=== PATIENT | female | born 1980 | race Caucasian/White ===

== ENCOUNTER 2017-11-22 15:06 | Emergency (ER) | payer BC ==
[~2017-11-22 15:06] MED LIST: CEPH-460 PO; CIPR-9 PO; HYDR-3533 PO; NORC5TAB PO; PRENTAB72; TAMS5CAP PO; TRUSPAK; ZOFR4TAB PO; ZOFR4TAB3 SL
--- NOTE | 2017-11-22 16:15 | PD ---
HPI Chief Complaint Nausea vomiting diarrhea Date Seen: Nov 22, 2017 Time Seen: 16:01 Travel History International Travel<30 Days: No Contact w/Intl Traveler<30Days: No Known Affected Area: No History of Present Illness HPI 37-year-old 4 para 1 at 26 weeks 1 day gestation who comes from [facility] emergency room for evaluation of a 10 hour history of nausea vomiting and diarrhea. Patient also has had some right-sided pain that she thought initially might be a kidney stone similar to what she had in the past although she had had no urinary symptoms. She denies any fever or anorexia. She had an initial workup in [place] which included a urinalysis that was negative for blood LCE and nitrite and did not meet criteria for culture. A CBC was performed which demonstrated a slight elevation of her WBCs at 15,000. She received 500 mg of Keflex and 4 mg of Zofran. Para: 1 : 4 Miscarriage: 2 History Past Medical History Narrative Medical History of kidney stones with lithotripsy 1 in April 2017 Obstetric History Obstetric History 2 SABs with 1 D&C She has a [id number] child the product of a vaginal delivery. That was uncomplicated and delivered at term. Past Surgical History Narrative Surgical Lithotripsy, D&C Family History Family History: Negative Social History Alcohol Use: No Tobacco Use: No Substance Abuse: No Allergies-Medications (Allergen,Severity, Reaction): Coded Allergies: No Known Allergies (Verified Adverse Reaction, Unknown, 11/22/17) Home Meds Reported Medications Vit W/ Ferrous Fumara ( 6.75-0.2 mg) 6.75 Mg Iron-200 Mcg Tab 11/22/17 Discontinued Reported Medications 2/Iron/Folic Acid/Om3 (Trust Dha) 29 Mg Iron-1 Mg-250 Mg Combo..pkg 11/22/17 Discontinued Scripts Tamsulosin (Flomax) 0.4 Mg Cap, 0.4 MG PO HS for Manage Prostate Problems, #30 CAP 0 Refills Prov:Candis Shelton MD 04/25/17 Ondansetron (Zofran) 4 Mg Tab, 4 MG PO Q8HR Y for NAUSEA OR VOMITING, #20 TAB 0 Refills Prov:Candis Shelton MD 04/25/17 Hydrocodone-Acetaminophen (Cropsey) 5-325 mg Tab, 1 TAB PO Q6H Y for PAIN, #20 TAB 0 Refills Prov:Candis Shelton MD 04/25/17 Ciprofloxacin (Cipro) 500 Mg Tab, 500 MG PO BID for Infection, #14 TAB 0 Refills Prov:Candis Shelton MD 04/25/17 Ondansetron Odt (Zofran Odt) 4 Mg Tab, 4 MG SL Q8HR Y for Nausea/Vomiting, #10 TAB 0 Refills Prov:Yaniv Hester MD 04/13/17 Cephalexin (Keflex) 500 Mg Cap, 500 MG PO Q12H for Infection for 7 Days, #14 CAP 0 Refills Prov:Yaniv Hester MD 04/13/17 Hydrocodone-Acetaminophen (Lortab) 5-325 Mg Tab, 1 TAB PO Q6H Y for PAIN, #20 TAB 0 Refills Prov:Yaniv Hester MD 04/13/17 Tamsulosin (Flomax) 0.4 Mg Cap, 0.4 MG PO HS for Manage Prostate Problems, #10 CAP 0 Refills Prov:Yaniv Hester MD 04/13/17 Review of Systems Except as stated in HPI: all other systems reviewed are Neg General / Constitutional: No: Fever Physical Exam Narrative GENERAL: Well-nourished, well-developed patient. She appears well. She moves easily on the stretcher. SKIN: Warm and dry. HEAD: Normocephalic and atraumatic. EYES: No scleral icterus. No injection or drainage. ENT: No nasal drainage noted. Mucous membranes pink. Airway patent. NECK: Supple, trachea midline. No JVD. CARDIOVASCULAR: Regular rate and rhythm without murmurs, gallops, or rubs. RESPIRATORY: Breath sounds equal bilaterally. No accessory muscle use. BREASTS: Bilateral exam showed no masses , no retractions, no nipple discharge. ABDOMEN/GI: Abdomen soft, non-tender, bowel sounds present, no rebound, no guarding. She describes the area that was painful as extending from the iliac crest around to the right flank. There is no tenderness in this area currently. Gravid to [-] weeks size Fundal Height: [-] GENITOURINARY: External Genitalia: intact and normal in appearance BUS glands: [Negative-] Cervix: [-] Dilatation: [-Closed] Effacement: [Long-] Station: [High-] Presentation: [-] Membranes: [ruptured] Uterine Contractions: [None apparent-] FHT's: Category: [-] Baseline: [140-] Reactive: [-] Variability: [+-] Decels: [-] EXTREMITIES: No cyanosis or edema. BACK: Nontender without obvious deformity. No CVA tenderness. NEUROLOGICAL: Awake and alert. Motor and sensory grossly within normal limits. Five out of 5 muscle strength in all muscle groups. Normal speech. Data Data Vital Signs Reviewed: Yes MDM Medical Record Reviewed: Yes Narrative Course / MDM Assessment: 26 week gestation with probable viral gastroenteritis Plan: Continue antiemetics. P.o. hydration. Precautions regarding worsening of symptoms or evidence of fever should prompt return to the ED with further consideration given to possible intra-abdominal process including appendicitis. Diagnosis Diagnosis: Primary Impression: 26 weeks gestation of Additional Impression: Non- nausea and vomiting Disposition: 01 DISCHARGE HOME Condition: Good Enoc Wesley MD Nov 22, 2017 16:15
== END 2017-11-22 17:31 | disposition home or self-care (01) ==
LOC: HOBED 15:06
DX: O21.2 Late vomiting of pregnancy (principal); Z3A.26 26 weeks gestation of pregnancy; Z79.899 Other long term (current) drug therapy
CPT/HCPCS: 80053; 81001; 85025; 99284; 99285

== ENCOUNTER 2018-02-19 03:43 | Inpatient (IN) ==
[2018-02-19] MEDS ORDERED: Sod Chloride 0.9% Inj 1,000 ML IV.CONT PRN (04:13)
[2018-02-19] MEDS ORDERED: Oxytocin 30 Units/500ml Premix 30 UNITS/500 ML BAG IV.SIG ONE (04:13)
[2018-02-19] MEDS ORDERED: Sodium Chlor 0.9% Inj 500 ML IV.SIG PRN (04:13)
[2018-02-19] MEDS ORDERED: fentaNYL Citrate Inj 100 MCG/2 ML Ampul IV.PUSH PRN ×2 (04:13)
[2018-02-19] MEDS ORDERED: Naloxone Inj 0.4 MG/ML Vial IV.PUSH PRN ×2 (04:13→05:03)
[2018-02-19] MEDS ORDERED: Citric Acid/Sodium Citrate Liq 30 ML UDC PO SCH (04:15)
--- NOTE | 2018-02-19 04:16 | P.OBGPN ---
Pt is a 37y/o @ 38.6wks. She came in and immediately delivered in triage with the RN. I was notified and came immediately. Cord was double clamped and taken to NICU. Pt being transferred to L&D room. Dr. Matthews notifed. Courtesy orders placed for admission.
[2018-02-19 04:39] LABS: Baso # (Auto) 0.1 th/mm3 (0.0-0.2); Baso % (Auto) 0.4 % (0.0-2.0); Eos % (Auto) 0.3 % (0.0-4.0); Hematocrit 36.9 % (35.0-46.0); Lymph # (Auto) 1.9 th/mm3 (1.0-4.8); Lymph % (Auto) 10.9 % (9.0-44.0); Mean Corpuscular HGB Conc 32.6 % (32.0-36.0); Mean Corpuscular Hemoglobin 27.4 pg (27.0-34.0); Mean Corpuscular Volume 83.8 fL (80.0-100.0); Mean Platelet Volume 8.5 fL (7.0-11.0); Mono # (Auto) 0.5 th/mm3 (0.0-0.9); Neut # (Auto) 15.1 th/mm3 (1.8-7.7); Neut % (Auto) 85.4 % (16.0-70.0); Platelet Count 272 th/mm3 (150-450); Red Cell Distribution Width 15.6 % (11.6-17.2); White Blood Count 17.7 th/mm3 (4.0-11.0)
[2018-02-19] MEDS ORDERED: Bisacodyl 10 MG Supp RECTAL PRN (05:03)
[2018-02-19] MEDS ORDERED: Witch Hazel 50%/Glyderin 12.5% 40 Pad Jar RECTAL PRN (05:03)
[2018-02-19] MEDS ORDERED: Oxytocin 30 Units/500ml Premix 30 UNITS/500 ML BAG IV.CONT PRN (05:03)
[2018-02-19] MEDS ORDERED: Benzocaine 20% Top Spray 60 ML Can TOPICAL PRN (05:03)
[2018-02-19] MEDS ORDERED: Zolpidem Tartrate 5 MG Tablet PO PRN (05:03)
--- NOTE | 2018-02-19 05:25 | P.OBGPN ---
S: I was called after the patient had delivered and arrived w/i 30 minutes of delivery. Patient is a 37-year-old G4 now [id number] who presented at 38w6d and shortly after arriving had a precipitous delivery in triage room of a female at 0407, per report the delivery was relatively uncomplicated, the did require resuscitation and is in the NICU at this time. Please see other providers / nursing documentation for further details The patient states she is doing well right now, the placenta also delivered spontaneously prior to my arrival at 0428. The patient has minimal cramping and discomfort, denies headache, blurred vision, epigastric pain. No heavy vaginal bleeding, fever or chills. was complicated by advanced maternal age, gestational diabetes. Past medical history: 1. obesity Past surgical history: 1. Lithotripsy in 2016 Medicaations: 1. vitamins Allergies: 1. NKDA Obstetrical history: 1. First trimester (12w) and second trimester (18w) SAB in 2007 and 2011 respectively, reported by patient 2. February 2016: 40 weeks, , female, 6 lbs. 1 oz. Patient was an induction for elevated blood pressures and had gestational diabetes. 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 History of abnormal Paps 2014, normal this . Family history: 1. No pertinent positives Social history: -Denies tobacco alcohol or drug use during the . Lives in [place] O: VS: Temperature 98.3, respiratory rate 18, pulse 93, blood pressure range 154 -141/ 67- 83 since presentation. General: Alert and oriented, well nourished, no acute distress. Skin: Skin is warm, dry and pink, no rashes or lesions. Eye: EOMI, normal conjunctiva HENT: Normocephalic, normal hearing,no scleral icterus, Breasts: deferred Lungs: Clear to auscultation bilaterally, non-labored respiration. Heart: Regular rate and rhythm, no murmurs, rubs or gallops. Abdomen: Soft, non-tender, non-distended, normal bowel sounds, uterus firm below umbilicus. External Genitalia: Normal female, small superficial abrasion to the right inner labia minora, hemostatic. Perineum intact. Vagina: [place], rugated, normal secretions. Speculum and bimanual exam deferred, Musculoskeletal: Normal range of motion and strength, no tenderness or edema. Neurologic: Awake, alert and oriented x 3, no gross focal neurological deficits Psychiatric: Cooperative, appropriate mood and affect. A/P 37-year-old G4 now [id number] s/p at 38w6d 1. s/p : Placenta was intact, perineum also intact no need for repair. Will place orders. Either myself or one of my partners will see her later this morning on rounds. - [place] female in NICU, per nursing required chest compressions but is on CPAP at this time. 2. Elevated blood pressures: no sn/sx of preeclampsia, will collect HELLP labs and urine P:C. Continue to trend BPs and monitor for any severe disease. 3. + UDS: on 28w labs + for benzo, UDS pending here.
[2018-02-19 05:36] LABS: Cord Arterial Blood HCO3 23.7
[2018-02-19 05:36] LABS: Albumin 2.8 g/dL (3.4-5.0); Anion Gap 12 meq/L (5-15); Blood Urea Nitrogen 12 mg/dL (7-18); Calcium 8.7 mg/dL (8.5-10.1); Carbon Dioxide 23.1 meq/L (21.0-32.0); Chloride 103 meq/L (98-107); Glucose,Random 158 mg/dL (74-106); Potassium 3.7 meq/L (3.5-5.1); Sodium 138 meq/L (136-145)
[2018-02-19 05:39] LABS: Alanine Aminotransferase 15 U/L (10-53); Alkaline Phosphatase 178 U/L (45-117); Aspartate Aminotransferase 10 U/L (15-37); Glomerular Filtration Rate Greater Than 89 mL/min (>89); Total Protein 7.4 g/dL (6.4-8.2)
[2018-02-19 07:26] LABS: Bilirubin,Urine Negative (Negative); Clarity,Urine Cloudy (Clear); Color,Urine Red (Yellw/Straw); Glucose,Urine (UA) Negative (Negative); Leukocyte Esterase,Urine Trace (Negative); Nitrite,Urine Negative (Negative); Specific Gravity,Urine 1.021 (1.002-1.035)
[2018-02-19 07:56] LABS: Amphetamine Urine With Conf Neg (Neg); Benzodiazepine Urine With Conf Neg (Neg)
--- NOTE | 2018-02-19 08:40 | P.PNOB ---
Subjective Post day: 0 Interval history: S/p precipitous delivery, SROM at home 2 hours prior to delivery in triage. Baby needed resuscitation. Seh just visited baby and notes child is doing well. Objective Vital Signs/I&O: Vital Signs 02/19/18 04:24 02/19/18 04:32 02/19/18 04:46 Temperature 98.3 F Pulse Rate 85 93 H 90 Respiratory Rate 18 18 18 Blood Pressure 147/81 H 148/77 H 141/83 H 02/19/18 05:00 02/19/18 05:01 02/19/18 05:20 Temperature Pulse Rate 97 H 92 H Respiratory Rate 18 18 Blood Pressure 154/67 H 145/77 H 02/19/18 05:34 02/19/18 05:36 02/19/18 05:49 Temperature Pulse Rate 85 90 Respiratory Rate 18 18 Blood Pressure 138/83 149/85 H Intake & Output 02/18/18 02/19/18 02/19/18 18:59 06:59 18:59 Weight 102.965 kg Result Diagrams: 02/19/18 04:20 02/19/18 04:00 Objective Remarks: GENERAL: Well-nourished, well-developed patient. CARDIOVASCULAR: Regular rate and rhythm without murmurs, gallops, or rubs. RESPIRATORY: Breath sounds equal bilaterally. No accessory muscle use. ABDOMEN/GI: Abdomen soft, non-tender. Fundus: Firm, non-tender at umbilicus. GENITOURINARY: Light to moderate bleeding. EXTREMITIES: No cyanosis or edema, non-tender, without signs of DVT. Medications and IVs: Active Medications Acetaminophen (Tylenol) 650 mg PO Q4H PRN PRN Reason: PAIN SCALE 1 TO 2 Al Hydroxide/Mg Hydroxide (Milk Of Magnesia Liq) 30 ml PO Q12H PRN PRN Reason: Mild Constipation Benzocaine (Americaine 20% Top [place]) 1 spray TOPICAL Q4H PRN PRN Reason: For Perineum Discomfort Bisacodyl (Dulcolax Supp) 10 mg RECTAL DAILY PRN PRN Reason: SEVERE CONSITIPATION Diphtheria/Pertussis/Tetanus Vacc (Boostrix Vaccine Inj) 0.5 ml IM .ONCE ONE Stop: 02/19/18 16:01 Oxytocin (Pitocin 30 Units/Ns 500 Ml Premix) 30 units in 500 mls @ 100 mls/hr IV.CONT UNSCH PRN PRN Reason: Heavy bleeding Ibuprofen (Motrin) 800 mg PO Q8H PRN PRN Reason: For Cramping Last Admin: 02/19/18 05:46 Dose: 800 mg Lactulose (Lactulose Liq) 30 ml PO DAILY PRN PRN Reason: SEVERE CONSITIPATION Measles/Mumps/Rubella Vaccine Live (M-M-R Ii Vaccine Inj) 0.5 ml SQ .ONCE ONE Stop: 02/19/18 16:01 Naloxone HCl (Narcan Inj) 0.1 mg IV.PUSH Q2M PRN PRN Reason: for opiate reversal Ondansetron HCl (Zofran Odt) 4 mg PO Q6H PRN PRN Reason: NAUSEA OR VOMITING Senna/Docusate Sodium (Vielka-Colace) 1 tab PO BID ELIDA Sennosides (Senokot) 17.2 mg PO Q12H PRN PRN Reason: Moderate Constipation Sodium Chloride (Ns Flush) 2 ml IV.FLUSH BID ELIDA Sodium Chloride (Ns Flush) 2 ml IV.FLUSH PRN PRN PRN Reason: FLUSH AFTER USING IV ACCESS Witch Leora/Glycerin (Tucks Pads) 1 applicatio RECTAL QID PRN PRN Reason: HEMORRHOIDS Zolpidem Tartrate (Ambien) 5 mg PO HS PRN PRN Reason: SLEEP Assessment and Plan - Diagnosis (1) AMA (advanced maternal age) multigravida 35+ Code(s): O09.529 - Supervision of elderly multigravida, unspecified trimester Status: Acute (2) History of precipitous delivery Code(s): Z87.59 - Personal history of other complications of , childbirth and the puerperium Status: Acute (3) Gestational diabetes Code(s): O24.419 - Gestational diabetes mellitus in , unspecified control Status: Acute (4) Preeclampsia Code(s): O14.90 - Unspecified pre-eclampsia, unspecified trimester Status: Acute - Plan PPD 0 s/p precipitous delivery pt doing well Baby in NICU but doing well Mild pre e based on BP and proteinuria. Will continue to trend bp
[2018-02-19] MEDS: Acetaminophen 325 MG Tablet PO PRN ×2 (10:12→21:49)
[2018-02-19] MEDS: Senna/Docusate Sodium 8.6/50 MG Tablet PO SCH ×2 (10:15→21:50)
[2018-02-19] MEDS: Ibuprofen 400 MG Tablet PO PRN ×2 (13:49→21:50)
[2018-02-19] MEDS ORDERED: Diphtheria/Tetanus/Pertussis Vaccine Inj 0.5 ML Syringe IM ONE (16:00)
[2018-02-19] MEDS ORDERED: Measles/Mumps/Rubella Vaccine Inj 0.5 ML Vial SQ ONE (16:00)
[2018-02-20] MEDS: Acetaminophen 325 MG Tablet PO PRN (05:21)
[2018-02-20] MEDS: Ibuprofen 400 MG Tablet PO PRN (05:21)
--- NOTE | 2018-02-20 08:41 | P.PNOB ---
Subjective Post day: 1 Interval history: had one episode of heavy bleeding yesterday afternoon. Bleeding tapered down since then. Vital signs stable Objective Vital Signs/I&O: Vital Signs 02/19/18 08:39 02/19/18 08:40 02/19/18 10:31 Temperature 97.7 F Pulse Rate 95 H 95 H Respiratory Rate Blood Pressure 148/97 H 142/81 H 02/19/18 17:28 02/19/18 20:00 02/19/18 23:44 Temperature 98.2 F Pulse Rate 84 98 H 84 Respiratory Rate 18 Blood Pressure 144/85 H 144/83 H 121/75 Result Diagrams: 02/19/18 04:20 02/19/18 04:00 Objective Remarks: GENERAL: Well-nourished, well-developed patient. CARDIOVASCULAR: Regular rate and rhythm without murmurs, gallops, or rubs. RESPIRATORY: Breath sounds equal bilaterally. No accessory muscle use. ABDOMEN/GI: Abdomen soft, non-tender. Fundus: Firm, non-tender at umbilicus. GENITOURINARY: Light to moderate bleeding. EXTREMITIES: No cyanosis or edema, non-tender, without signs of DVT. Medications and IVs: Active Medications Acetaminophen (Tylenol) 650 mg PO Q4H PRN PRN Reason: PAIN SCALE 1 TO 2 Last Admin: 02/20/18 05:21 Dose: 650 mg Al Hydroxide/Mg Hydroxide (Milk Of Magnesia Liq) 30 ml PO Q12H PRN PRN Reason: Mild Constipation Benzocaine (Americaine 20% Top [place]) 1 spray TOPICAL Q4H PRN PRN Reason: For Perineum Discomfort Last Admin: 02/19/18 21:48 Dose: 1 spray Bisacodyl (Dulcolax Supp) 10 mg RECTAL DAILY PRN PRN Reason: SEVERE CONSITIPATION Oxytocin (Pitocin 30 Units/Ns 500 Ml Premix) 30 units in 500 mls @ 100 mls/hr IV.CONT UNSCH PRN PRN Reason: Heavy bleeding Ibuprofen (Motrin) 800 mg PO Q8H PRN PRN Reason: For Cramping Last Admin: 02/20/18 05:21 Dose: 800 mg Lactulose (Lactulose Liq) 30 ml PO DAILY PRN PRN Reason: SEVERE CONSITIPATION Naloxone HCl (Narcan Inj) 0.1 mg IV.PUSH Q2M PRN PRN Reason: for opiate reversal Ondansetron HCl (Zofran Odt) 4 mg PO Q6H PRN PRN Reason: NAUSEA OR VOMITING Senna/Docusate Sodium (Vielka-Colace) 1 tab PO BID [facility] Last Admin: 02/19/18 21:50 Dose: 1 tab Sennosides (Senokot) 17.2 mg PO Q12H PRN PRN Reason: Moderate Constipation Sodium Chloride (Ns Flush) 2 ml IV.FLUSH BID [facility] Last Admin: 02/19/18 21:51 Dose: 2 ml Sodium Chloride (Ns Flush) 2 ml IV.FLUSH PRN PRN PRN Reason: FLUSH AFTER USING IV ACCESS Witch Leora/Glycerin (Tucks Pads) 1 applicatio RECTAL QID PRN PRN Reason: HEMORRHOIDS Last Admin: 02/19/18 21:48 Dose: 1 applicatio Zolpidem Tartrate (Ambien) 5 mg PO HS PRN PRN Reason: SLEEP Assessment and Plan - Diagnosis (1) AMA (advanced maternal age) multigravida 35+ Code(s): O09.529 - Supervision of elderly multigravida, unspecified trimester Status: Acute (2) History of precipitous delivery Code(s): Z87.59 - Personal history of other complications of , childbirth and the puerperium Status: Acute (3) Gestational diabetes Code(s): O24.419 - Gestational diabetes mellitus in , unspecified control Status: Acute (4) Preeclampsia Code(s): O14.90 - Unspecified pre-eclampsia, unspecified trimester Status: Acute - Plan PPD 1 s/p precipitous delivery pt doing well Baby in NICU but doing well Mild pre e based on BP and proteinuria. Will continue to trend bp, BP mild to normal GDM- will need 2 hr pp. Cont low carb diet/lifestyle modification Desires d/c will do stay close room
[2018-02-20] MEDS: Senna/Docusate Sodium 8.6/50 MG Tablet PO SCH (09:20)
[2018-02-20] MEDS ORDERED: Labetalol 100 MG Tablet PO SCH (10:00)
== END 2018-02-20 11:50 | disposition home or self-care (01) ==
LOC: HOBED 03:43 → H2E 04:10 → H1EA 08:44
PROVIDERS: ADMIT Obstetrics & Gynecology; ATTEND Obstetrics & Gynecology